=== PATIENT | female | born 1975 | race American Indian/Alaskan Native ===

== ENCOUNTER 2017-04-07 02:55 | Emergency (ER) | payer BC ==
[2017-04-07] MEDS ORDERED: ASPIRIN PO ONE (04:16)
[2017-04-07 05:26] LABS: Basophils # (Auto) 0.1 K/mm3 (0.0-0.1); Basophils % (Auto) 0.9 % (0.0-1.8); Eosinophils # (Auto) 0.2 K/mm3 (0.0-0.4); Eosinophils % (Auto) 3.4 % (0.0-4.3); Hematocrit 35.5 % (30.3-42.9); Hemoglobin 11.8 gm/dl (10.1-14.3); Lymphocytes # (Auto) 1.8 K/mm3 (1.2-5.4); Lymphocytes % (Auto) 30.1 % (13.4-35.0); Mean Corpuscular HGB Conc 33 % (30-34); Mean Corpuscular Hemoglobin 30 pg (28-32); Mean Corpuscular Volume 89 fl (79-97); Monocytes # (Auto) 0.6 K/mm3 (0.0-0.8); Monocytes % (Auto) 9.6 % (0.0-7.3); Platelet Count 236 K/mm3 (140-440); Red Blood Count 3.99 M/mm3 (3.65-5.03)
[2017-04-07 06:04] LABS: BUN/Creatinine Ratio 17; Blood Urea Nitrogen 10 mg/dL (7-17); Calcium 8.6 mg/dL (8.4-10.2); Hemolysis Index 4
--- NOTE | 2017-04-07 07:24 | Emergency Department Report ---
ED Chest Pain HPI - General Chief Complaint: Chest Pain Stated Complaint: CHEST PAIN, BACK PAIN Time Seen by Provider: 04/07/17 07:23 Source: patient Mode of arrival: Ambulatory Limitations: No Limitations - History of Present Illness Initial Comments: Patient complains of chest per lower back pain which occur independently at the same time but do not radiate. She appears to be equally concerned about a stronger smelling urine. Her chest pain is intermittent. As well as her back ache. It does worsen when she sits up in the gurney. She does not report any unusual activity. She states that she traveled to [place] the first of the month. She denies any leg pain or swelling. There is no family history of CAD or PTT reported. Patient has had no prior visits for chest pain, no history of VTE and no other apparent risk factors. The pain is not truly pleuritic. There is no associated dyspnea. There are no associated symptoms and no neurological change with the pain. The duration of the pain is seconds and it is intermittent. It is not persistent. -: days(s) Onset: during rest Pain Location: substernal Pain Radiation: back (lower back but not radiating times upper back) Severity: mild, moderate Severity scale (0 -10): 0 Quality: aching Consistency: intermittent Improves With: nothing Worsens With: movement Context: recent travel (a few weeks ago) re: denies: nausea, vomting, diaphoresis, dyspnea, sense of impending doom Other Symptoms: denies: cough, fever, syncope, rash, acid taste in mouth Treatments Prior to Arrival: none Aspirin use within the Past 7 Days: (0) No - Related Data On Oral Contraceptives: No Previous Rx's Medication Instructions Recorded Last Taken Type Nitrofurantoin Monohyd/M-Cryst 100 mg PO BID #10 capsule 04/07/17 Unknown Rx [Macrobid 100 mg Capsule] traMADol [Ultram] 50 mg PO Q6HR PRN #10 tablet 04/07/17 Unknown Rx Allergies Allergy/AdvReac Type Severity Reaction Status Date / Time banana Allergy Mild Unknown Verified 04/07/17 04:15 Heart Score - HEART Score History: Slightly suspicious EKG: Normal Age: < 45 Risk factors: No known risk factors Troponin: < normal limit HEART Score: 0 ED Review of Systems ROS: Stated complaint: CHEST PAIN, BACK PAIN Other details as noted in HPI Constitutional: denies: chills, fever Eyes: denies: eye pain, eye discharge, vision change ENT: denies: ear pain, throat pain Respiratory: denies: cough, shortness of breath, wheezing Cardiovascular: as per HPI, chest pain. denies: palpitations Endocrine: no symptoms reported Gastrointestinal: denies: abdominal pain, nausea, diarrhea Genitourinary: as per HPI. denies: urgency, dysuria, discharge Musculoskeletal: as per HPI, back pain. denies: joint swelling, arthralgia Skin: denies: rash, lesions Neurological: denies: headache, weakness, paresthesias Psychiatric: denies: anxiety, depression Hematological/Lymphatic: denies: easy bleeding, easy bruising ED Past Medical Hx - Past Medical History Hx Asthma: Yes - Surgical History Past Surgical History?: Yes Additional Surgical History: tubal ligation 1999, gastric bypasss 2014 - Social History Smoking Status: Never Smoker Substance Use Type: None - Medications Home Medications: Home Medications Medication Instructions Recorded Confirmed Last Taken Type Nitrofurantoin Monohyd/M-Cryst 100 mg PO BID #10 capsule 04/07/17 Unknown Rx [Macrobid 100 mg Capsule] traMADol [Ultram] 50 mg PO Q6HR PRN #10 tablet 04/07/17 Unknown Rx ED Physical Exam - General Limitations: No Limitations General appearance: alert, in no apparent distress - Head Head exam: Present: atraumatic, normocephalic - Eye Eye exam: Present: normal appearance, PERRL, EOMI. Absent: scleral icterus - ENT ENT exam: Present: mucous membranes moist - Neck Neck exam: Present: normal inspection - Respiratory Respiratory exam: Present: normal lung sounds bilaterally. Absent: respiratory distress - Cardiovascular Cardiovascular Exam: Present: regular rate, normal rhythm. Absent: systolic murmur, diastolic murmur, rubs, gallop - GI/Abdominal GI/Abdominal exam: Present: soft, normal bowel sounds. Absent: distended, tenderness, guarding, rebound, rigid - Extremities Exam Extremities exam: Present: normal inspection - Back Exam Back exam: Present: normal inspection, other (apparent global soreness of the trunk when she sits up in the gurney). Absent: CVA tenderness (R), CVA tenderness (L), muscle spasm, paraspinal tenderness, vertebral tenderness - Neurological Exam Neurological exam: Present: alert, oriented X3, CN II-XII intact. Absent: motor sensory deficit - Psychiatric Psychiatric exam: Present: normal affect, normal mood - Skin Skin exam: Present: warm, dry, intact, normal color. Absent: rash ED Course Vital Signs 04/07/17 04/07/17 04/07/17 04:05 06:55 06:59 Temperature 98.8 F Pulse Rate 78 71 Respiratory 16 16 18 Rate Blood Pressure 130/80 124/85 Blood Pressure [Left] O2 Sat by Pulse 100 99 Oximetry 04/07/17 04/07/17 04/07/17 07:00 07:05 07:15 Temperature Pulse Rate 63 70 Respiratory 14 18 18 Rate Blood Pressure 124/71 124/71 Blood Pressure [Left] O2 Sat by Pulse 96 Oximetry 04/07/17 04/07/17 04/07/17 07:30 07:45 08:00 Temperature Pulse Rate 72 64 77 Respiratory 18 19 16 Rate Blood Pressure 123/78 123/78 121/89 Blood Pressure [Left] O2 Sat by Pulse Oximetry 04/07/17 08:14 Temperature 98.5 F Pulse Rate 72 Respiratory 18 Rate Blood Pressure Blood Pressure 123/78 [Left] O2 Sat by Pulse 96 Oximetry ED Medical Decision Making - Lab Data Result diagrams: 04/07/17 04:50 04/07/17 04:50 Laboratory Results - last 24 hr 04/07/17 04/07/17 04:50 04:50 WBC 6.1 RBC 3.99 Hgb 11.8 Hct 35.5 MCV 89 MCH 30 MCHC 33 RDW 14.0 Plt Count 236 Lymph % (Auto) 30.1 [place] % (Auto) 9.6 H Eos % (Auto) 3.4 Baso % (Auto) 0.9 Lymph # 1.8 Coos # 0.6 Eos # 0.2 Baso # 0.1 Seg Neutrophils % 56.0 Seg Neutrophils # 3.4 Sodium 140 Potassium 4.4 Chloride 102.8 Carbon Dioxide 23 Anion Gap 19 BUN 10 Creatinine 0.6 L Estimated GFR > 60 BUN/Creatinine Ratio 17 Glucose 100 Calcium 8.6 Troponin T < 0.010 Laboratory Results - last 24 hr 04/07/17 04/07/17 04/07/17 04:50 04:50 06:28 WBC 6.1 RBC 3.99 Hgb 11.8 Hct 35.5 MCV 89 MCH 30 MCHC 33 RDW 14.0 Plt Count 236 Lymph % (Auto) 30.1 [place] % (Auto) 9.6 H Eos % (Auto) 3.4 Baso % (Auto) 0.9 Lymph # 1.8 Coos # 0.6 Eos # 0.2 Baso # 0.1 Seg Neutrophils % 56.0 Seg Neutrophils # 3.4 PT INR APTT D-Dimer Sodium 140 Potassium 4.4 Chloride 102.8 Carbon Dioxide 23 Anion Gap 19 BUN 10 Creatinine 0.6 L Estimated GFR > 60 BUN/Creatinine Ratio 17 Glucose 100 Calcium 8.6 Troponin T < 0.010 < 0.010 Urine Color Urine Turbidity Urine pH Ur Specific [place] Urine Protein Urine Glucose (UA) Urine Ketones Urine Blood Urine Nitrite Urine Bilirubin Urine Urobilinogen Ur Leukocyte Esterase Urine WBC (Auto) Urine RBC (Auto) U Epithel Cells (Auto) Urine Bacteria (Auto) Urine Mucus 04/07/17 04/07/17 08:00 Unknown WBC RBC Hgb Hct MCV MCH MCHC RDW Plt Count Lymph % (Auto) [place] % (Auto) Eos % (Auto) Baso % (Auto) Lymph # [place] # Eos # Baso # Seg Neutrophils % Seg Neutrophils # PT 12.4 INR 0.88 APTT 31.6 D-Dimer 222.07 Sodium Potassium Chloride Carbon Dioxide Anion Gap BUN Creatinine Estimated GFR BUN/Creatinine Ratio Glucose Calcium Troponin T Urine Color Yellow Urine Turbidity Clear Urine pH 7.0 Ur Specific [place] 1.019 Urine Protein <15 mg/dl Urine Glucose (UA) Neg Urine Ketones Neg Urine Blood Sm Urine Nitrite Neg Urine Bilirubin Neg Urine Urobilinogen < 2.0 Ur Leukocyte Esterase Tr Urine WBC (Auto) 8.0 H Urine RBC (Auto) 1.0 U Epithel Cells (Auto) 3.0 Urine Bacteria (Auto) 1+ Urine Mucus Few - EKG Data -: EKG Interpreted by Me EKG shows normal: sinus rhythm, axis, intervals, QRS complexes, ST-T waves Rate: normal - EKG Data Interpretation: normal EKG - Radiology Data Radiology results: report reviewed interpreted by me: Chest x-ray shows no acute process Critical care attestation.: If time is entered above; I have spent that time in minutes in the direct care of this critically ill patient, excluding procedure time. ED Disposition Clinical Impression: Musculoskeletal chest pain, Musculoskeletal back pain UTI (urinary tract infection) Qualifiers: Urinary tract infection type: site unspecified Hematuria presence: without hematuria Qualified Code(s): N39.0 - Urinary tract infection, site not specified Disposition: TO HOME OR SELFCARE Is pt being admited?: No Does the pt Need Aspirin: No Condition: Stable Instructions: Chest Pain (ED), Musculoskeletal Pain (ED), Urinary Tract Infection in Women (ED) Additional Instructions: Follow-up your primary care provider. Return any acute change or problem. Prescriptions: Nitrofurantoin Monohyd/M-Cryst [Macrobid 100 mg Capsule] 100 mg PO BID #10 capsule traMADol [Ultram] 50 mg PO Q6HR PRN #10 tablet PRN Reason: Pain Referrals: PRIMARY CAREMD [Primary Care Provider] - 3-5 Days [facility] [Provider Group] - 3-5 Days EDGAR ALEMAN MD [Staff Physician] - 3-5 Days Time of Disposition: 08:38
[2017-04-07 07:54] LABS: Bacteria,Urine 1+ /HPF (Negative); Bilirubin,Urine NEG (Negative); Blood,Urine SM (Negative); Color,Urine Yellow (Yellow); Mucus,Urine FEW /HPF; Nitrite,Urine NEG (Negative); Protein,Urine <15 mg/dL mg/dL (Negative); Urobilinogen,Urine < 2.0 mg/dL (<2.0)
--- NOTE | 2017-04-07 08:00 | XRay Report ---
AP CHEST: HISTORY: chest pain AP view of the chest demonstrates a normal mediastinal and cardiac contour with clear lungs and normal bony and soft tissue structures. IMPRESSION: Unremarkable AP chest.
[2017-04-07 08:32] LABS: INR 0.88 (0.87-1.13)
[2017-04-07 08:33] LABS: Partial Thromboplastin Time 31.6 Sec. (24.2-36.6)
[2017-04-07 08:41] LABS: Alanine Aminotransferase 15 units/L (7-56)
[2017-04-07 08:46] LABS: Bilirubin,Direct < 0.2 mg/dL (0-0.2)
[2017-04-07 10:12] VITALS: BP 111/64
== END 2017-04-07 09:46 | disposition home or self-care (01) ==
LOC: ED 02:55
DX: N39.0 Urinary tract infection, site not specified (principal); R07.9 Chest pain, unspecified; M54.5 Low back pain; J45.909 Unspecified asthma, uncomplicated
CPT/HCPCS: 36415; 71045; 80048; 80074; 81001; 83880; 84484; 85025; 85379; 85610; 85730; 87076; 87086; 87186; 93005; 93010